=== PATIENT | male | born 1965 | race African-American/Black ===

== ENCOUNTER 2019-05-26 21:13 | Observation (INO) | payer MEDICAID, MEDICARE, OTHER ==
[2019-05-26 21:39] LABS: #Eosinphils 0.2 thou/uL (0.0-0.7); #Monocytes 0.5 thou/uL (0.11-0.59); #Neutrophils 3.4 thou/uL (1.40-6.50); %Basophils 0.5 % (0.0-1.0); %Eosinophils 2.7 % (0.0-10.0); %Lymphocytes 42.2 % (21.0-51.0); %Monocytes 6.8 % (0.0-10.0); %Neutrophils 47.8 % (42.0-75.0); Hemoglobin 15.1 g/dL (14.0-18.0); Mean Corpuscular HGB CONC 33.3 g/dL (32.0-36.0); Mean Corpuscular Hemoglobin 31.7 pg (27.0-31.0); Mean Corpuscular Volume 95.2 fL (78.0-98.0); Platelet Count 275 thou/uL (130-400); RBC Distribution Width 11.5 % (11.5-14.5); Red Blood Cell (RBC) Count 4.76 mill/uL (4.70-6.10); White Blood Cell (WBC) Count 7.1 thou/uL (4.8-10.8)
--- NOTE | 2019-05-26 21:44 | RAD ---
Exam: Chest one view HISTORY:Chest pain Comparison: 12/10/2016 FINDINGS: Lungs: No masses or consolidation. Cardiac silhouette:Accentuated by portable technique Pulmonary vessels: Normal Pleural Spaces: Clear Pneumothorax: None Osseous abnormalities: None of acuity. IMPRESSION: No focal consolidation.
[2019-05-26 21:59] LABS: ALT (SGPT) 21 U/L (8-55); AST (SGOT) 16 U/L (5-34); Albumin 4.2 g/dL (3.5-5.0); Alkaline Phosphatase 52 U/L (40-150); Anion Gap 12 mmol/L (10-20); BUN (Urea Nitrogen) 10 mg/dL (8.4-25.7); Bilirubin, Total 0.7 mg/dL (0.2-1.2); CK (CPK) 310 U/L (30-200); Calc. Creatinine Clearance 0 mL/min (70-130); Calcium 9.2 mg/dL (7.8-10.44); Carbon Dioxide 24 mmol/L (22-29); Chloride 108 mmol/L (98-107); Estimated GFR-MDRD 85; Globulin 3.4 g/dL (2.4-3.5); Glucose 115 mg/dL (70-105); Lipase 33 U/L (8-78); Potassium 3.6 mmol/L (3.5-5.1); Protein, Total 7.6 g/dL (6.0-8.3); Sodium 140 mmol/L (136-145)
[2019-05-26] MEDS ORDERED: Aspirin Chewable 81 MG TAB ONE (22:01)
[2019-05-26] MEDS ORDERED: Nitroglycerin 2% Ointment 1 INCH/1 GM Packet ONE (22:01)
[2019-05-27 00:46] LABS: Troponin I 0.023 ng/mL (< 0.028)
[2019-05-27] MEDS ORDERED: Ondansetron PF 4 MG/2 ML Vial IVP PRN (00:49)
[2019-05-27] MEDS ORDERED: Acetaminophen 325 MG TAB PO PRN ×2 (00:49→12:18)
[2019-05-27] MEDS ORDERED: Ondansetron ODT 4 MG TAB SL PRN (00:49)
[2019-05-27 01:08] VITALS: BMI 37.4
[2019-05-27] MEDS ORDERED: Senokot S 8.6-50 MG TAB PO PRN (12:18)
[2019-05-27] MEDS ORDERED: Guaifenesin DM 100-10/5 ML UDCUP PO PRN (12:18)
[2019-05-27] MEDS ORDERED: Calcium Carbonate 500 MG ChewTAB PO PRN (12:18)
[2019-05-27] MEDS ORDERED: Bisacodyl 10 MG SUPP PR PRN (12:18)
[2019-05-27] MEDS ORDERED: hydrALAZINE 20 MG/ML VIAL SLOW IVP PRN (14:00)
[2019-05-27] MEDS ORDERED: cloNIDine 0.1 MG TAB PO PRN (14:00)
[2019-05-27] MEDS ORDERED: Carvedilol 25 MG TAB PO SCH (14:00)
[2019-05-27] MEDS ORDERED: Lisinopril 20 MG TAB PO SCH (14:00)
[2019-05-27] MEDS: Furosemide 40 MG/4 ML VIAL SLOW IVP SCH (14:04)
--- NOTE | 2019-05-27 16:16 | HP ---
REASON FOR ADMISSION: Mild congestive heart failure exacerbation, mild chronic obstructive pulmonary disease exacerbation. HISTORY OF PRESENT ILLNESS: The patient gives history of chest pain. It started around 8 hours back. He was watching TV yesterday evening and the patient had left-sided chest pain. There was no radiation of this pain. He was also feeling short of breath when this happened. As the pain was unrelenting, he finally made it to the emergency room. The chest pain was 3 to 4/10 in intensity and sharp pain. He also mentions that he has postnasal drip and was having trouble breathing through his nose yesterday. No cough or expectoration. No fever. He states he is compliant with medication, but drinks a lot of fluids. He has known history of cardiomyopathy. PAST MEDICAL AND SURGICAL HISTORY: History of cardiomyopathy with prior EF of 20% in December of 2015, had cardiac cath in January of 2016, which showed ejection fraction of 15% and normal coronaries. He had a repeat echo done in October of 2016 where the ejection fraction had improved to 40%, hypertension, obesity, tobacco abuse, appendectomy. CURRENT MEDICATION: Takes lisinopril 40 mg daily, carvedilol 25 mg twice daily, aspirin 81 mg daily, Protonix 40 mg daily, torsemide as needed 40 mg when he gets fluid retention. ALLERGIES: NO KNOWN DRUG ALLERGIES. PERSONAL HISTORY: Smokes 10 cigarettes a day. Does not abuse alcohol or drugs. FAMILY HISTORY: Mother at the age of 86 years from natural causes. He does not know much about his father. The patient is single and has 5 children. CODE STATUS: Full. REVIEW OF SYSTEMS: CONSTITUTIONAL: Negative for weight loss or gain, ability to conduct usual activities. SKIN: Negative for rash, itching. EYES: Negative for double vision, pain. ENT/MOUTH: Negative for nose bleeding, neck stiffness, pain, tenderness. CARDIOVASCULAR: Negative for palpitations, dyspnea on exertion, orthopnea. RESPIRATORY: Negative for shortness of breath, wheezing, cough, hemoptysis, fever or night sweats. GASTROINTESTINAL: Negative for poor appetite, abdominal pain, heartburn, nausea , vomiting, constipation, or diarrhea. GENITOURINARY: Negative for urgency, frequency, dysuria, nocturia. MUSCULOSKELETAL: Negative for pain, swelling. NEUROLOGIC/PSYCHIATRIC: Negative for anxiety, depression. ALLERGY/IMMUNOLOGIC: Negative for skin rash, bleeding tendency. PHYSICAL EXAMINATION: GENERAL: The patient is a 54-year-old male who is currently not in any acute distress. VITAL SIGNS: Blood pressure 170/106, pulse 96 per minute, respiratory rate 18 per minute, temperature 98.1 degrees Fahrenheit, saturating 94% on room air. NECK: Supple. No elevated JVD. HEENT: Eyes; extraocular muscles intact. Pupils reacting to light. Oral cavity, mucous membranes are moist. There is mild congestion in the posterior pharynx. No exudates. CARDIOVASCULAR SYSTEM: S1, S2 heard. Regular rhythm. RESPIRATORY: Air entry 1+ bilateral. Scattered rhonchi plus bilateral, mild wheezes plus bilateral. ABDOMEN: Soft. Bowel sounds heard. No tenderness, rigidity, or guarding. EXTREMITIES: No peripheral edema or calf tenderness. VASCULAR SYSTEM: Peripheral pulses 1+ bilateral. No ischemic ulcerations or gangrene. CENTRAL NERVOUS SYSTEM: No gross focal deficits noted. The patient is alert, awake, oriented. Well psychiatric system. The patient's mood is euthymic. No hallucinations or delusions. LABORATORY DATA: Chest x-ray done shows mild cardiomegaly, otherwise no acute infiltrates seen. Troponin x3 is negative. BNP is less than 10. BUN 10, creatinine 1.0 serum bicarb is 24, albumin is 4.2, and lipase is 33. White count of 7, H and H 15 and 45, platelet count 275, MCV is 95 with 47% neutrophils. EKG done shows normal sinus rhythm at 88 beats per minute. There is questionable Q- waves in leads 2, 3, AVF, V2, V3. CLINICAL IMPRESSION AND PLAN: The patient will be admitted to telemetry under observation for mild congestive heart failure and mild chronic obstructive pulmonary disease exacerbation. The patient has known history of cardiomyopathy and is not compliant with fluid intake. He also uses tobacco. We will give him 3-4 doses of Lasix, DuoNeb q.6 hourly and continue his Coreg at 25 mg twice daily, lisinopril 20 mg daily along with aspirin. Repeat echo with 2D Doppler for LV function will be obtained. Last known prior EF on [employer] is from October of 2016 where he had improved ejection fraction of around 40%. We will continue to closely monitor him on telemetry. Job ID: [id number] [facility]
[2019-05-27] MEDS: Enalaprilat Dihydrate 1.25 MG/ML VIAL SLOW IVP SCH (17:12)
[2019-05-27] MEDS: Famotidine 20 MG TAB PO SCH (20:10)
[2019-05-27] MEDS: Carvedilol 25 MG TAB PO SCH (20:10)
[2019-05-27] MEDS: Amoxicillin/Potassium Clav 875 MG TAB PO SCH (20:10)
[2019-05-28] MEDS ORDERED: Enalaprilat Dihydrate 1.25 MG/ML VIAL SLOW IVP PRN (00:08)
[2019-05-28] MEDS: Enalaprilat Dihydrate 1.25 MG/ML VIAL SLOW IVP SCH (00:13)
[2019-05-28] MEDS: Furosemide 40 MG/4 ML VIAL SLOW IVP SCH (06:10)
[2019-05-28 08:39] VITALS: TEMP 98.3
[2019-05-28] MEDS ORDERED: Lisinopril 20 MG TAB PO SCH (09:00)
[2019-05-28] MEDS ORDERED: Aspirin Chewable 81 MG TAB PO SCH (09:00)
[2019-05-28] MEDS ORDERED: Enoxaparin Sodium 40 MG/0.4 ML SYRINGE SC SCH (09:00)
[2019-05-28 09:01] LABS: #Basophils 0.1 thou/uL (0.0-0.2); #Eosinphils 0.1 thou/uL (0.0-0.7); #Lymphocytes 2.2 thou/uL (1.20-3.40); #Monocytes 0.3 thou/uL (0.11-0.59); #Neutrophils 2.1 thou/uL (1.40-6.50); %Basophils 1.9 % (0.0-1.0); %Eosinophils 2.3 % (0.0-10.0); %Lymphocytes 45.4 % (21.0-51.0); %Monocytes 6.8 % (0.0-10.0); %Neutrophils 43.6 % (42.0-75.0); Hemoglobin 16.1 g/dL (14.0-18.0); Mean Corpuscular HGB CONC 33.1 g/dL (32.0-36.0); Mean Corpuscular Hemoglobin 31.8 pg (27.0-31.0); Mean Platelet Volume 6.9 fL (7.4-10.4); Platelet Count 252 thou/uL (130-400); RBC Distribution Width 11.6 % (11.5-14.5); Red Blood Cell (RBC) Count 5.06 mill/uL (4.70-6.10); White Blood Cell (WBC) Count 4.8 thou/uL (4.8-10.8)
[2019-05-28] MEDS: Carvedilol 25 MG TAB PO SCH (09:20)
[2019-05-28] MEDS: Amoxicillin/Potassium Clav 875 MG TAB PO SCH (09:20)
[2019-05-28] MEDS: Famotidine 20 MG TAB PO SCH (09:20)
[2019-05-28 09:21] VITALS: BP 121/72
[2019-05-28 09:22] LABS: Anion Gap 12 mmol/L (10-20); BUN (Urea Nitrogen) 11 mg/dL (8.4-25.7); Calc. Creatinine Clearance 122 mL/min (70-130); Calcium 10.1 mg/dL (7.8-10.44); Carbon Dioxide 28 mmol/L (22-29); Chloride 103 mmol/L (98-107); Estimated GFR-MDRD 77; Glucose 88 mg/dL (70-105); Potassium 3.8 mmol/L (3.5-5.1); Sodium 139 mmol/L (136-145)
--- NOTE | 2019-05-30 13:38 | DIS ---
DATE OF ADMISSION: 05/26/2019 DATE OF DISCHARGE: 05/28/2019 DISCHARGE DISPOSITION: Home. PRIMARY DISCHARGE DIAGNOSES: Mild acute congestive heart failure exacerbation with prior systolic dysfunction, class C; mild chronic obstructive pulmonary disease exacerbation with ongoing tobacco abuse, stable. SECONDARY DISCHARGE DIAGNOSES: History of cardiomyopathy, hypertension, obesity, tobacco abuse. PROCEDURES DONE DURING HOSPITALIZATION: Echo with 2D Doppler done showed EF of 40% to 45%. There was diastolic dysfunction. H and H are 16 and 48, platelet count 252, MCV is 96, BUN 11, creatinine 1.1. Troponin x3 negative. BNP was less than 10. Chest x-ray done showed no focal consolidations. DISCHARGE MEDICATIONS: 1. Augmentin 875 mg p.o. twice daily for another 4 days. 2. Albuterol inhaler q.6 hourly p.r.n. 3. Protonix 40 mg daily. 4. Aspirin 81 mg daily. 5. Coreg 12.5 mg twice daily. 6. Lasix 40 mg daily. 7. Lisinopril 20 mg daily. ALLERGIES: NO KNOWN DRUG ALLERGIES. DISCHARGE PLAN: The patient to follow up with primary care physician in 1 week. BRIEF COURSE DURING HOSPITALIZATION: The patient initially came to ER with complaints of chest pain and shortness of breath. He also had cough and postnasal drip. The patient had known history of cardiomyopathy with prior EF of 20% in 2016. He was placed under observation and has had gentle diuresis along with bronchodilators and empiric antibiotic. He has responded well to above measures. His orthopnea has completely resolved and is able to ambulate well. He is tolerating oral solid diet as well. The patient was counseled with regard to smoking cessation. His medications were optimized. He was counseled with regard to dietary, medication compliance, and followups with primary care physician. Please note I have seen and examined the patient on the day of discharge. Job ID: [id number]
--- NOTE | 2019-06-03 13:01 | EKG ---
Test Reason : Blood Pressure : / mmHG Vent. Rate : 088 BPM Atrial Rate : 088 BPM P-R Int : 184 ms QRS Dur : 076 ms QT Int : 346 ms P-R-T Axes : 045 -40 027 degrees QTc Int : 418 ms Normal sinus rhythm Left atrial enlargement Left axis deviation Inferior infarct , age undetermined Anterior infarct , age undetermined Abnormal ECG Confirmed by LEOBARDO MORGAN, GELACIO Tolentino ([id number]), loan expeditor RIMA MARTINEZ ([id number]) on 06/03/2019 1:00:58 PM Referred By: Confirmed By:GELACIO BOOTH MD
== END 2019-05-28 11:04 | disposition home or self-care (01) ==
LOC: ERS 21:13 → 2SW 23:24
PROVIDERS: ADMIT Internal Medicine; ATTEND Internal Medicine
DX: J44.1 Chronic obstructive pulmonary disease with (acute) exacerbation (principal); I50.40 Unspecified combined systolic (congestive) and diastolic (congestive) heart failure; F17.210 Nicotine dependence, cigarettes, uncomplicated; Z79.82 Long term (current) use of aspirin; Z79.899 Other long term (current) drug therapy
CPT/HCPCS: 71045; 80048; 80053; 82550; 83690; 83880; 84484 ×3; 85025 ×2; 93005; 93306; 94640 ×2; 94760; 96372; 96374; 96376; 99285; G0378 ×2; 36415; J1650; J1940; J7620

== ENCOUNTER 2020-02-10 01:31 | Emergency (ER) | payer MEDICARE ==
[2020-02-10] MEDS ORDERED: Aspirin Chewable 81 MG TAB ONE (01:58)
[2020-02-10 02:21] LABS: #Basophils 0.1 thou/uL (0.0-0.2); #Eosinphils 0.1 thou/uL (0.0-0.7); #Monocytes 0.7 thou/uL (0.11-0.59); #Neutrophils 3.8 thou/uL (1.40-6.50); %Basophils 0.9 % (0.0-1.0); %Eosinophils 1.7 % (0.0-10.0); %Lymphocytes 39.1 % (21.0-51.0); %Monocytes 9.5 % (0.0-10.0); %Neutrophils 48.8 % (42.0-75.0); Hemoglobin 16.5 g/dL (14.0-18.0); Mean Corpuscular HGB CONC 35.4 g/dL (32.0-36.0); Mean Corpuscular Hemoglobin 33.5 pg (27.0-31.0); Mean Corpuscular Volume 94.8 fL (78.0-98.0); Mean Platelet Volume 7.3 fL (7.4-10.4); Platelet Count 268 thou/uL (130-400); RBC Distribution Width 11.5 % (11.5-14.5); Red Blood Cell (RBC) Count 4.92 mill/uL (4.70-6.10); White Blood Cell (WBC) Count 7.7 thou/uL (4.8-10.8)
[2020-02-10 02:36] LABS: ALT (SGPT) 23 U/L (8-55); AST (SGOT) 23 U/L (5-34); Albumin 4.2 g/dL (3.5-5.0); Alkaline Phosphatase 58 U/L (40-110); Anion Gap 18 mmol/L (10-20); BUN (Urea Nitrogen) 10 mg/dL (8.4-25.7); Bilirubin, Total 0.7 mg/dL (0.2-1.2); Calc. Creatinine Clearance 0 mL/min (70-130); Calcium 8.9 mg/dL (7.8-10.44); Carbon Dioxide 18 mmol/L (22-29); Chloride 106 mmol/L (98-107); Estimated GFR-MDRD 87; Globulin 3.9 g/dL (2.4-3.5); Glucose 140 mg/dL (70-105); Potassium 4.6 mmol/L (3.5-5.1); Protein, Total 8.1 g/dL (6.0-8.3); Sodium 137 mmol/L (136-145)
--- NOTE | 2020-02-10 08:23 | RAD ---
CHEST ONE VIEW: HISTORY: Left sided chest pain. COMPARISON: 05/26/2019 FINDINGS: The cardiac silhouette is magnified by projection. The pulmonary vasculature is within normal limits. The lungs are clear. The thoracic aorta remains ectatic. The chest is stable compared to the prior e xam. IMPRESSION: No acute cardiopulmonary process. POS: OFF
== END 2020-02-10 05:42 | disposition home or self-care (01) ==
LOC: ERS 01:31
DX: R07.2 Precordial pain (principal); I42.9 Cardiomyopathy, unspecified; I50.9 Heart failure, unspecified; F17.210 Nicotine dependence, cigarettes, uncomplicated; Z79.82 Long term (current) use of aspirin; Z79.899 Other long term (current) drug therapy
CPT/HCPCS: 36415; 71045; 80053; 84484; 85025; 93005

== ENCOUNTER 2023-09-06 01:13 | Inpatient (IN) | payer MEDICARE, OTHER ==
[2023-09-06] MEDS ORDERED: Nitroglycerin 0.4 MG TAB 1 EACH ONE (01:51)
[2023-09-06 01:58] LABS: #Eosinphils 0.6 thou/uL (0.0-0.7); #Monocytes 0.7 thou/uL (0.11-0.59); #Neutrophils 2.4 thou/uL (1.40-6.50); %Basophils 0.6 % (0.0-1.0); %Eosinophils 9.3 % (0.0-10.0); %Lymphocytes 43.5 % (21.0-51.0); %Monocytes 10.5 % (0.0-10.0); %Neutrophils 35.8 % (42.0-75.0); Hematocrit 42.9 % (42.0-52.0); Hemoglobin 14.5 g/dL (14.0-18.0); Mean Corpuscular HGB CONC 33.8 g/dL (32.0-36.0); Mean Corpuscular Hemoglobin 31.9 pg (27.0-31.0); Mean Corpuscular Volume 94.5 fl (78.0-98.0); Mean Platelet Volume 9.5 fL (7.4-10.4); Platelet Count 245 10x3/uL (130-400); Red Blood Cell (RBC) Count 4.54 mill/uL (4.70-6.10); White Blood Cell (WBC) Count 6.6 10x3/uL (4.8-10.8)
[2023-09-06 02:25] LABS: Troponin I 0.016 ng/mL (< 0.028)
[2023-09-06 02:39] LABS: ALT (SGPT) 22 U/L (8-55); AST (SGOT) 24 U/L (5-34); Albumin 4.3 g/dL (3.5-5.0); Alkaline Phosphatase 50 U/L (40-110); Anion Gap 17 mmol/L (10-20); BUN (Urea Nitrogen) 11 mg/dL (8.4-25.7); Bilirubin, Total 0.6 mg/dL (0.2-1.2); Calc. Creatinine Clearance 0 mL/min (70-130); Calcium 8.9 mg/dL (7.8-10.44); Carbon Dioxide 23 mmol/L (22-29); Chloride 106 mmol/L (98-107); Estimated GFR 65; Globulin 3.5 g/dL (2.4-3.5); Glucose 143 mg/dL (70-105); Potassium 4.2 mmol/L (3.5-5.1); Protein, Total 7.8 g/dL (6.0-8.3); Sodium 142 mmol/L (136-145)
[2023-09-06] MEDS ORDERED: Ondansetron PF 4 MG/2 ML Vial ONE (02:41)
[2023-09-06] MEDS ORDERED: Morphine 4 MG/ML VIAL ONE (02:41)
[2023-09-06] MEDS ORDERED: Ondansetron PF 4 MG/2 ML Vial IVP PRN (03:08)
[2023-09-06] MEDS ORDERED: Acetaminophen 325 MG TAB PO PRN (03:08)
[2023-09-06] MEDS ORDERED: Nitroglycerin 0.4 MG TAB (25 Tab Bottle) SL PRN (03:08)
[2023-09-06] MEDS ORDERED: Furosemide 20 MG/2 ML VIAL SLOW IVP SCH ×2 (03:15→16:45)
[2023-09-06] MEDS ORDERED: Ipratropium/Albuterol 3 ML NEB EZPAP PRN (03:22)
[2023-09-06] MEDS ORDERED: Furosemide 20 MG/2 ML VIAL ONE ×2 (04:48→06:35)
[2023-09-06 05:18] LABS: #Eosinphils 0.6 thou/uL (0.0-0.7); #Monocytes 0.5 thou/uL (0.11-0.59); #Neutrophils 1.9 thou/uL (1.40-6.50); %Basophils 0.7 % (0.0-1.0); %Eosinophils 10.4 % (0.0-10.0); %Lymphocytes 47.3 % (21.0-51.0); %Monocytes 8.7 % (0.0-10.0); %Neutrophils 32.6 % (42.0-75.0); Hematocrit 43.8 % (42.0-52.0); Hemoglobin 14.7 g/dL (14.0-18.0); Mean Corpuscular HGB CONC 33.6 g/dL (32.0-36.0); Mean Corpuscular Volume 95.4 fl (78.0-98.0); Mean Platelet Volume 10.8 fL (7.4-10.4); Platelet Count 219 10x3/uL (130-400); RBC Distribution Width 12.3 % (11.5-14.5); Red Blood Cell (RBC) Count 4.59 mill/uL (4.70-6.10); White Blood Cell (WBC) Count 5.8 10x3/uL (4.8-10.8)
[2023-09-06 05:51] LABS: Troponin I 0.011 ng/mL (< 0.028)
[2023-09-06] MEDS: Furosemide 20 MG/2 ML VIAL SLOW IVP SCH ×2 (07:02→19:38)
[2023-09-06 07:56] LABS: Chloride 103 mmol/L (98-107); Potassium 3.9 mmol/L (3.5-5.1); Sodium 141 mmol/L (136-145)
[2023-09-06 07:57] LABS: Calcium 8.9 mg/dL (7.8-10.44); Glucose 103 mg/dL (70-105)
[2023-09-06 07:58] LABS: Triglycerides 202 mg/dL (Less than 150)
[2023-09-06 07:59] LABS: Anion Gap 15 mmol/L (10-20); Carbon Dioxide 27 mmol/L (22-29)
[2023-09-06 08:01] LABS: Calc. Creatinine Clearance 0 mL/min (70-130); Estimated GFR 73
[2023-09-06 08:02] LABS: BUN (Urea Nitrogen) 11 mg/dL (8.4-25.7)
[2023-09-06 08:03] LABS: Cholesterol 165 mg/dl (< 200 Desired); HDL Cholesterol 33 mg/dL (>60 Neg Risk); LDL Cholesterol, Calculated 92 mg/dL
[2023-09-06 08:07] LABS: Troponin I Less than 0.010 ng/mL (< 0.028)
[2023-09-06 08:39] VITALS: BMI 39.3
[2023-09-06] MEDS ORDERED: Aspirin Chewable 81 MG TAB ONE (09:13)
[2023-09-06] MEDS: Aspirin Chewable 81 MG TAB PO SCH (09:15)
[2023-09-06] MEDS ORDERED: Regadenoson 0.4 MG/5 ML SYRINGE ONE (15:05)
[2023-09-06] MEDS ORDERED: Magnesium 2 GM/50 ML(in water) 2 GM in Premix 1 BAG IVPB SCH (17:45)
[2023-09-07 05:04] LABS: #Eosinphils 0.5 thou/uL (0.0-0.7); #Monocytes 0.6 thou/uL (0.11-0.59); #Neutrophils 2.6 thou/uL (1.40-6.50); %Basophils 0.5 % (0.0-1.0); %Lymphocytes 35.2 % (21.0-51.0); %Monocytes 10.5 % (0.0-10.0); %Neutrophils 45.4 % (42.0-75.0); Hematocrit 43.2 % (42.0-52.0); Hemoglobin 14.3 g/dL (14.0-18.0); Mean Corpuscular HGB CONC 33.1 g/dL (32.0-36.0); Mean Corpuscular Hemoglobin 32.4 pg (27.0-31.0); Mean Platelet Volume 9.7 fL (7.4-10.4); Platelet Count 243 10x3/uL (130-400); RBC Distribution Width 11.9 % (11.5-14.5); Red Blood Cell (RBC) Count 4.41 mill/uL (4.70-6.10); White Blood Cell (WBC) Count 5.6 10x3/uL (4.8-10.8)
[2023-09-07 05:36] LABS: Anion Gap 12 mmol/L (10-20); BUN (Urea Nitrogen) 11 mg/dL (8.4-25.7); Calc. Creatinine Clearance 146 mL/min (70-130); Calcium 8.8 mg/dL (7.8-10.44); Carbon Dioxide 30 mmol/L (22-29); Chloride 102 mmol/L (98-107); Estimated GFR 75; Glucose 97 mg/dL (70-105); Magnesium 2.1 mg/dL (1.6-2.6); Potassium 3.9 mmol/L (3.5-5.1); Sodium 140 mmol/L (136-145)
[2023-09-07] MEDS ORDERED: Furosemide 20 MG/2 ML VIAL SLOW IVP SCH (06:00)
[2023-09-07] MEDS ORDERED: Iopamidol 370 76% 100 ML VIAL ONE (09:18)
[2023-09-07] MEDS: Aspirin Chewable 81 MG TAB PO SCH (09:46)
[2023-09-07] MEDS ORDERED: Heparin 10,000 UNITS/ 10 ML VIAL ONE (13:12)
[2023-09-07] MEDS ORDERED: Lidocaine 1% PF 5 ML VIAL ONE (13:12)
[2023-09-07] MEDS ORDERED: Verapamil 5 MG/2 ML VIAL ONE (13:12)
[2023-09-07] MEDS ORDERED: Nitroglycerin 50 MG/250 ML BOT 250 ML ONE (13:13)
[2023-09-07] MEDS ORDERED: Sodium Chloride 0.9% 1,000 ML IV SCH ×2 (13:30→14:45)
[2023-09-07] MEDS ORDERED: Communication Order-Pharmacy FS SCH (13:30)
[2023-09-07] MEDS ORDERED: fentaNYL 50 mcg/mL 1 mL Vial ONE (13:49)
[2023-09-07] MEDS ORDERED: Midazolam HCl 2 mg/2 ml Vial ONE (13:49)
[2023-09-07] MEDS ORDERED: hydrALAZINE 20 MG/ML VIAL ONE (13:51)
[2023-09-07] MEDS ORDERED: Sodium Chloride 0.9% 200 ML IV PRN (14:45)
[2023-09-07] MEDS ORDERED: Nitroglycerin 0.4 MG TAB (25 Tab Bottle) SL PRN (14:45)
[2023-09-07] MEDS ORDERED: Acetaminophen/Codeine 30-300mg Tablet PO PRN ×2 (14:45)
[2023-09-07] MEDS: Amiodarone 200 MG TAB PO SCH (19:38)
[2023-09-08] MEDS ORDERED: Carvedilol 3.125 MG TAB PO SCH (08:00)
[2023-09-08 08:02] VITALS: BP 157/95; TEMP 97.1
[2023-09-08] MEDS: Aspirin Chewable 81 MG TAB PO SCH (08:25)
[2023-09-08] MEDS: Amiodarone 200 MG TAB PO SCH (08:25)
[2023-09-08] MEDS ORDERED: Rivaroxaban 10 MG TAB PO SCH (09:00)
[2023-09-08] MEDS ORDERED: Furosemide 40 MG TAB PO SCH (09:00)
[2023-09-08] MEDS ORDERED: Non-Formulary Item 1 EACH (Rivaroxaban [Xarelto] 20 MG Tablet) PO SCH (09:00)
[2023-09-08] MEDS ORDERED: Atorvastatin Calcium 40 MG TAB PO SCH (21:00)
[2023-09-08] MEDS ORDERED: Atorvastatin Calcium 20 MG TAB PO SCH (21:00)
== END 2023-09-08 11:05 | disposition home or self-care (01) | DRG 287 ==
LOC: ERS 01:13 → ERHOLD 02:58 → 2SW 15:21 → OBSVTOIN 09-08 10:32
PROVIDERS: ADMIT Internal Medicine; ATTEND Hospitalist
PROC: 4A023N7 Measurement of Cardiac Sampling and Pressure, Left Heart, Percutaneous Approach (ICD-10-PCS; principal; 2023-09-07)
PROC: B2111ZZ Fluoroscopy of Multiple Coronary Arteries using Low Osmolar Contrast (ICD-10-PCS; 2023-09-07)
DX: I25.10 Atherosclerotic heart disease of native coronary artery without angina pectoris (principal); I50.22 Chronic systolic (congestive) heart failure; Z68.41 Body mass index [BMI] 40.0-44.9, adult; I48.0 Paroxysmal atrial fibrillation; I11.0 Hypertensive heart disease with heart failure; J44.9 Chronic obstructive pulmonary disease, unspecified; G47.33 Obstructive sleep apnea (adult) (pediatric); F17.210 Nicotine dependence, cigarettes, uncomplicated; E66.9 Obesity, unspecified; I42.9 Cardiomyopathy, unspecified; Z88.8 Allergy status to other drugs, medicaments and biological substances; Z79.899 Other long term (current) drug therapy; Z79.01 Long term (current) use of anticoagulants; Z90.49 Acquired absence of other specified parts of digestive tract; Z98.890 Other specified postprocedural states
CPT/HCPCS: 36415; 71045; 78452; 80048; 80053; 80061; 83036; 83735; 83880; 84484; 85025; 93005; 93017; 93306; 93458; 94760; 96365; 96374; 96375; 96376; 99152; 99153; A9500; C1769; C1894; G0378; J0360; J1644; J1940; J2250; J2270; J2405; J2785; J3010; J3475; J7050; Q9967